=== PATIENT | female | born 1975 | race African-American/Black ===

== ENCOUNTER → 2017-05-05 | Outpatient (CLI) | payer OTHER ==
--- NOTE | ~2017-05-05 | MY29 ---
[facility] A Service of [facility] RADIOLOGY TEXT RESULTS PATIENT: GIULIA HINKLE LOCATION: [facility] : 71 UNIT #: [id number] AGE: [address]: JOSE WARD APRN SEX: F ORDER DR: [id number] [facility] [address] [place], [place] [address] [id number] O MR#: [id number] Acc #: [id number] NAME: GIULIA HINKLE : 1975 SEX: F STUDY DATE/TIME: 05/05/2017 8:49 UNIT: [facility] ROOM: STUDY DESCRIPTION: MY KARMA SCREENING W/ CAD BILAT Attending Physician: Jose Ward Ordering Physician: Indigo Boyce Primary Care Physician: Jose Ward MEDICAL IMAGING REPORT This report is preliminary unless electronic signature is present EXAM Digital screening mammogram, 05/05/2017, [facility]. HISTORY 42-year-old woman. No risk elevation. Annual screen. COMPARISON Comparison mammograms date to 08/07/2013 with most recent 05/02/2016. FINDINGS Digital imaging of each breast was completed utilizing a two-view examination of each breast in craniocaudal and mediolateral-oblique projections. Review and interpretation of digital mammograms include a second review in conjunction with FDA-approved CAD device. There is a normal parenchymal presentation bilaterally consistent with the patient's age. There are no breast masses imaged and no parenchymal asymmetry is visualized. There are no suspicious microcalcifications and I see no focal architectural disturbance. IMPRESSION Negative screening digital mammogram. One-year followup recommended. Patients over the age of 40 are entered into a reminder system with target due date for the next mammogram. A result letter will also be sent to the patient. BIRADS: 1 Negative ADDENDUM Breast parenchyma is fatty replaced. Dictated by... Fernando Rangel M.D. [facility] A Service [facility] RADIOLOGY TEXT RESULTS PATIENT: GIULIA HINKLE LOCATION: [facility] : 71 UNIT #: [id number] AGE: [address]: JOSE WARD APRN SEX: F ORDER DR: THIS IS AN ELECTRONICALLY VERIFIED REPORT Fernando Rangel M.D. at 05/05/2017 1:11 PM Olivia TD: 05/05/2017 11:53 JOB #: [id number] MEDICAL IMAGING REPORT Page 1 of 1 COPY
== END | disposition home or self-care (01) ==
LOC: CWCC 08:30
DX: Z12.31 Encounter for screening mammogram for malignant neoplasm of breast (principal); R92.8 Other abnormal and inconclusive findings on diagnostic imaging of breast
CPT/HCPCS: G0202